=== PATIENT | female | born 1935 | race Caucasian/White ===

== ENCOUNTER 2016-07-05 23:17 | Emergency (ER) | payer MEDICARE ==
[~2016-07-05 23:17] MED LIST: ZOCOR20 MG PO
[2016-07-06 02:40] LABS: HEMOGLOBIN 11.6 gm/dl (12.3-15.3); RED BLOOD COUNT 3.6 M/UL (4.00-5.10); WHITE BLOOD COUNT 10.8 K/UL (4.5-11.0)
== END 2016-07-06 05:25 | disposition home or self-care (01) ==
LOC: ER1 23:17
PROVIDERS: Family Medicine
DX: N93.9 Abnormal uterine and vaginal bleeding, unspecified (principal); N39.0 Urinary tract infection, site not specified; I25.10 Atherosclerotic heart disease of native coronary artery without angina pectoris; Z88.0 Allergy status to penicillin; Z88.8 Allergy status to other drugs, medicaments and biological substances; Z79.899 Other long term (current) drug therapy
CPT/HCPCS: 36415; 80053; 81001; 85025; 85610; 99284

== ENCOUNTER → 2016-08-23 | Outpatient (CLI) | payer MEDICARE ==
[~2016-08-23] MED LIST changes: +ASPIRIN81 MG PO; +DIOVAN320 MG PO; +HYDRALAZINE HCL50 MG PO; +LOPRESSOR 25 MG25 MG PO; +MECLIZINE HCL25 MG PO; +SINGULAIR10 MG PO; +ZANTAC 150 MG150 MG PO
== END ==
LOC: CT 08-05 14:30
DX: R41.81 Age-related cognitive decline (principal); E78.2 Mixed hyperlipidemia; I10 Essential (primary) hypertension; I25.10 Atherosclerotic heart disease of native coronary artery without angina pectoris; R53.83 Other fatigue; R93.0 Abnormal findings on diagnostic imaging of skull and head, not elsewhere classified; J34.89 Other specified disorders of nose and nasal sinuses
CPT/HCPCS: 70450

== ENCOUNTER 2016-09-05 17:34 | Inpatient (IN) | payer MEDICARE ==
[~2016-09-05] VITALS: Ht 154.9 cm; Wt 67.6 kg
[~2016-09-05 17:34] MED LIST changes: -ASPIRIN81 MG PO; -DIOVAN320 MG PO; -HYDRALAZINE HCL50 MG PO; -LOPRESSOR 25 MG25 MG PO; -MECLIZINE HCL25 MG PO; -SINGULAIR10 MG PO; -ZANTAC 150 MG150 MG PO
[2016-09-05 20:35] LABS: HEMOGLOBIN 11.7 gm/dl (12.3-15.3); RED BLOOD COUNT 3.64 M/UL (4.00-5.10)
[2016-09-05 20:44] LABS: BUN/CREATININE RATIO 11 (0-10)
[2016-09-06] MEDS ORDERED: DIOVAN320 MG PO (01:36)
[2016-09-06] MEDS ORDERED: MECLIZINE HCL25 MG PO (01:37)
[2016-09-06] MEDS ORDERED: ASPIRIN81 MG PO (01:39)
[2016-09-06] MEDS ORDERED: HYDRALAZINE HCL50 MG PO (01:40)
[2016-09-06] MEDS ORDERED: SINGULAIR10 MG PO (01:40)
[2016-09-06] MEDS ORDERED: ZANTAC 150 MG150 MG PO (01:40)
[2016-09-06 06:21] LABS: WHITE BLOOD COUNT 6.9 K/UL (4.5-11.0)
[2016-09-06 06:29] LABS: RED BLOOD COUNT 3.17 M/UL (4.00-5.10)
[2016-09-07 06:45] LABS: HEMOGLOBIN 9.8 gm/dl (12.3-15.3); RED BLOOD COUNT 3.15 M/UL (4.00-5.10); WHITE BLOOD COUNT 7.2 K/UL (4.5-11.0)
[2016-09-08] MEDS ORDERED: LOPRESSOR 25 MG25 MG PO (01:37)
[2016-09-08 06:01] LABS: HEMOGLOBIN 10.7 gm/dl (12.3-15.3); RED BLOOD COUNT 3.39 M/UL (4.00-5.10); WHITE BLOOD COUNT 8.1 K/UL (4.5-11.0)
[2016-09-11 06:05] LABS: HEMOGLOBIN 11.3 gm/dl (12.3-15.3); RED BLOOD COUNT 3.6 M/UL (4.00-5.10); WHITE BLOOD COUNT 8.8 K/UL (4.5-11.0)
[2016-09-18 05:09] LABS: HEMOGLOBIN 12.2 gm/dl (12.3-15.3); RED BLOOD COUNT 3.76 M/UL (4.00-5.10); WHITE BLOOD COUNT 9.8 K/UL (4.5-11.0)
== END 2016-09-19 16:41 | DRG 689 ==
LOC: ER1 17:34 → ZEROF 22:15 → M/S 23:24
PROVIDERS: Emergency Medicine; Family Medicine; ADMIT Internal Medicine
DX: N39.0 Urinary tract infection, site not specified (principal); G93.41 Metabolic encephalopathy; F02.81 Dementia in other diseases classified elsewhere, unspecified severity, with behavioral disturbance; F05 Delirium due to known physiological condition; N17.9 Acute kidney failure, unspecified; T46.5X5A Adverse effect of other antihypertensive drugs, initial encounter; Y92.009 Unspecified place in unspecified non-institutional (private) residence as the place of occurrence of the external cause; G30.9 Alzheimer's disease, unspecified; Z91.83 Wandering in diseases classified elsewhere; I12.9 Hypertensive chronic kidney disease with stage 1 through stage 4 chronic kidney disease, or unspecified chronic kidney disease; N18.3 Chronic kidney disease, stage 3 (moderate); I48.91 Unspecified atrial fibrillation; I25.10 Atherosclerotic heart disease of native coronary artery without angina pectoris; M19.90 Unspecified osteoarthritis, unspecified site; J30.2 Other seasonal allergic rhinitis; Z95.5 Presence of coronary angioplasty implant and graft; E78.5 Hyperlipidemia, unspecified; Z79.82 Long term (current) use of aspirin; Z79.899 Other long term (current) drug therapy; Z88.0 Allergy status to penicillin; Z88.8 Allergy status to other drugs, medicaments and biological substances; B95.61 Methicillin susceptible Staphylococcus aureus infection as the cause of diseases classified elsewhere; E86.9 Volume depletion, unspecified; E87.5 Hyperkalemia
CPT/HCPCS: 36415; 70450; 71010; 80048; 80053; 80307; 81001; 82550; 82607; 82746; 84443; 84484; 85025; 85027; 87040; 87077; 87086; 87186; 93005; 96374; 99285; J1650; J1956; J2060